=== PATIENT | male | born 1965 | race Caucasian/White ===

== ENCOUNTER 2017-09-06 14:38 | Emergency (ER) | payer OTHER ==
[~2017-09-06 14:38] MED LIST: METO50TA PO; WELL150T PO
[2017-09-06 14:41] VITALS: BP 185/114; PULSE 141; RESP 16; TEMP 98.5; O2SAT 95
--- NOTE | 2017-09-06 16:00 | PD ---
HPI Chief Complaint: Pain: Acute or Chronic Time Seen by Provider: 15:46 Travel History International Travel<30 days: No Contact w/Intl Traveler<30days: No Traveled to known affect area: No History of Present Illness HPI Unable to obtain history of present illness. Patient left AMA prior to history of present illness and exam. PFSH Past Medical History Depression: Yes Cancer: No Cardiovascular Problems: No Diabetes: No Diminished Hearing: No Endocrine: No Genitourinary: No Hepatitis: No Hiatal Hernia: No Hypertension: Yes Immune Disorder: No Musculoskeletal: No Neurologic: No Psychiatric: Yes (DEPRESSION, ANXIETY) Reproductive: No Respiratory: No Immunizations Current: No Thyroid Disease: No Past Surgical History Abdominal Surgery: Yes (UMBILICAL HERNIA REPAIR X 2) AICD: No Body Medical Devices: SPINAL CORD STIMULATOR INSERTED WITH LUMBAR FUSION 1995 Cardiac Surgery: No Ear Surgery: No Endocrine Surgery: No Eye Surgery: No Genitourinary Surgery: No Gynecologic Surgery: No Joint Replacement: No Oral Surgery: Yes (TONSILECTOMY) Pacemaker: No Thoracic Surgery: No Other Surgery: Yes Social History Alcohol Use: Yes Tobacco Use: No Substance Use: Yes (marijuana) Allergies-Medications (Allergen,Severity, Reaction): Coded Allergies: No Known Allergies (Unverified , 04/13/16) Reported Meds & Prescriptions Reported Meds & Active Scripts Active Reported Metoprolol Tartrate 50 mg (Metoprolol Tartrate) 50 Mg Tab 50 Mg PO BID Wellbutrin Sr (Bupropion HCl) 150 Mg Tab 150 Mg PO Q12H Review of Systems ROS Limitations: Other: (was not able to obtain HPI; pt left AMA prior to HPI and exam) Physical Exam Exam Limitations: Left before Exam Complete, Left AMA Narrative Unable to perform physical exam secondary to patient leaving AMA prior to history of present illness and physical exam. Data Data Last Documented VS Vital Signs Date Time Temp Pulse Resp B/P (MAP) Pulse Ox O2 Delivery O2 Flow Rate FiO2 09/06/17 14:41 98.5 141 16 185/114 (137) 95 Orders Orders Complete Blood Count With Diff (09/06/17 14:58) Blood Culture (09/06/17 14:58) Comprehensive Metabolic Panel (09/06/17 14:58) MDM Medical Decision Making Medical Screen Exam Complete: Yes Emergency Medical Condition: Yes Medical Record Reviewed: Yes Differential Diagnosis Osteomyelitis, Sepsis, cellulitis, infected cat bite wound Narrative Course 52-year-old male that left AMA prior to history of present illness and physical exam. He was more concerned that the room was not sterile. I tried discussing his health and plan of coming into the emergency department and he continued to be more concerned about the cleanliness of the room and wanted addressed before the addressing his ER complaint. His blood pressure and heart rate are elevated. I did mention this to the patient and he proceeded to leave AMA because he was not happy with the cleanliness of the room. He also pointed out a plug on the wall he was concern about. I made multiple attempts to address the patients emergency complaint. AMA: The risks of leaving against medical advice without further evaluation treatment were discussed with the patient. These risks include cardiac dysfunction, cardiac dysrhythmia, possible heart attack, possible stroke or . The patient indicated understanding of these risks and appeared to have the capacity to make this decision. Diagnosis Primary Impression: Left against medical advice Disposition: 07 AGAINST MEDICAL ADVICE Gloria Cochran Sep 06, 2017 16:00
== END 2017-09-06 15:45 | disposition left against medical advice (07) ==
LOC: NEPD 14:38
DX: R69 Illness, unspecified (principal); F32.9 Major depressive disorder, single episode, unspecified; I10 Essential (primary) hypertension; F41.9 Anxiety disorder, unspecified; Z79.899 Other long term (current) drug therapy; Z53.21 Procedure and treatment not carried out due to patient leaving prior to being seen by health care provider
CPT/HCPCS: 99283